=== PATIENT | male | born 1985 | race Caucasian/White ===

== ENCOUNTER 2017-08-25 10:40 | Emergency (ER) | payer OTHER ==
[~2017-08-25] VITALS: Ht 175.3 cm; Wt 113.4 kg
[2017-08-25] MEDS ORDERED: KETOROLAC TROMETHAMINE 60 MG INJ IM ONE ×2 (11:30→11:32)
--- NOTE | 2017-08-25 11:40 | NUR ---
Patient discharged to home in stable conditon. Written and verbal after care instructions given. Patient verbalizes understanding of instructions. ambulatory with a steady gait
[2017-08-25 11:41] VITALS: BP 147/84
== END 2017-08-25 11:42 | disposition home or self-care (01) ==
LOC: ER 10:40
DX: S39.011A Strain of muscle, fascia and tendon of abdomen, initial encounter (principal); X58.XXXA Exposure to other specified factors, initial encounter; Y93.89 Activity, other specified; Y92.89 Other specified places as the place of occurrence of the external cause; Y99.8 Other external cause status
CPT/HCPCS: A4663; J1885

== ENCOUNTER 2017-09-30 15:40 | Emergency (ER) | payer MEDICAID, OTHER ==
[~2017-09-30] VITALS: Ht 175.3 cm; Wt 113.4 kg
--- NOTE | 2017-09-30 16:03 | NUR ---
MSE COMPLETED, PT D/C'D HOME, ACI/RX X1/WORK RELEASE GIVEN. PT AMBULATED W/O DIFF/TOOK ALL BLONGINGS.
[2017-09-30 16:04] VITALS: BP 138/74
== END 2017-09-30 16:05 | disposition home or self-care (01) ==
LOC: ER 15:43
DX: J20.9 Acute bronchitis, unspecified (principal)
CPT/HCPCS: A4663

== ENCOUNTER 2017-12-15 16:28 | Emergency (ER) | payer OTHER ==
[~2017-12-15] VITALS: Ht 175.3 cm; Wt 113.4 kg
--- NOTE | 2017-12-15 17:18 | NUR ---
ANGEL SENA AT THE BEDSIDE FOR MSE.
--- NOTE | 2017-12-15 17:18 | NUR ---
DR. SHELTON AT BEDSIDE FOR EVAL.
--- NOTE | 2017-12-15 19:02 | NUR ---
Patient discharged to home in stable conditon. Written and verbal after care instructions given. Patient verbalizes understanding of instructions.
[2017-12-15 19:03] VITALS: BP 142/74
== END 2017-12-15 19:04 | disposition home or self-care (01) ==
LOC: ER 16:31
DX: S63.501A Unspecified sprain of right wrist, initial encounter (principal); S60.221A Contusion of right hand, initial encounter; W51.XXXA Accidental striking against or bumped into by another person, initial encounter; Y93.89 Activity, other specified; Y92.89 Other specified places as the place of occurrence of the external cause; Y99.8 Other external cause status
CPT/HCPCS: 29125; 73110; 73130; 99284; A4663

== ENCOUNTER 2018-01-28 17:19 | Emergency (ER) | payer OTHER ==
[~2018-01-28] VITALS: Ht 177.8 cm; Wt 111.1 kg
--- NOTE | 2018-01-28 17:36 | NUR ---
Patient discharged to home in stable conditon. Written and verbal after care instructions given. Patient verbalizes understanding of instructions.
== END 2018-01-28 17:37 | disposition home or self-care (01) ==
LOC: ER 17:20
DX: S83.92XA Sprain of unspecified site of left knee, initial encounter (principal); X50.1XXA Overexertion from prolonged static or awkward postures, initial encounter; Y93.89 Activity, other specified; Y92.89 Other specified places as the place of occurrence of the external cause; Y99.8 Other external cause status
CPT/HCPCS: 99282; A4663; J7030

== ENCOUNTER 2018-09-05 03:33 | Emergency (ER) | payer OTHER ==
[~2018-09-05] VITALS: Ht 177.8 cm; Wt 111.6 kg
[2018-09-05] MEDS ORDERED: ONDANSETRON ODT 4 MG TAB.RAPDIS ONE (03:54)
--- NOTE | 2018-09-05 03:57 | NUR ---
Patient discharged to home in stable conditon. Written and verbal after care instructions given. Patient verbalizes understanding of instructions.
[2018-09-05] MEDS ORDERED: ONDANSETRON ODT 4 MG TAB.RAPDIS SL ONE (04:00)
== END 2018-09-05 03:58 | disposition home or self-care (01) ==
LOC: ER 03:51
DX: A08.4 Viral intestinal infection, unspecified (principal)
CPT/HCPCS: A4663; Q0162

== ENCOUNTER 2019-01-06 16:50 | Emergency (ER) | payer OTHER ==
[~2019-01-06] VITALS: Ht 177.8 cm; Wt 113.4 kg
[2019-01-06] MEDS ORDERED: TDAP DIPH,PERTUSS,TET VAC/PF 0.5 ML DISP.SYRIN IM ONE ×2 (17:45→17:47)
--- NOTE | 2019-01-06 17:50 | NUR ---
PATIENT WAS SEEN BY MD. VACCINE GIVEN ORDERED. DC AND FOLLOW UP INSTRUCTIONS GIVEN AND EXPLAINED TO PATIENT WHO STATE HE UNDERSTANDS ALL INSTRUCTIONS.
== END 2019-01-06 17:52 | disposition home or self-care (01) ==
LOC: ER 16:51
DX: S51.052A Open bite, left elbow, initial encounter (principal); W50.3XXA Accidental bite by another person, initial encounter; Y93.89 Activity, other specified; Y92.89 Other specified places as the place of occurrence of the external cause; Y99.8 Other external cause status
CPT/HCPCS: 90715; A4663

== ENCOUNTER 2019-04-15 17:30 | Emergency (ER) | payer OTHER ==
[~2019-04-15] VITALS: Ht 177.8 cm; Wt 113.4 kg
--- NOTE | 2019-04-15 18:07 | NUR ---
Dr Quiñones at the bedside for MSE.
[2019-04-15] MEDS ORDERED: BENZONATATE 100 MG CAPSULE PO ONE (18:15)
[2019-04-15] MEDS ORDERED: BENZONATATE 100 MG CAPSULE ONE (18:17)
[2019-04-15 18:18] VITALS: BP 120/92
--- NOTE | 2019-04-15 18:19 | NUR ---
Patient discharged to home in stable conditon. Written and verbal after care instructions given. Patient verbalizes understanding of instructions.
== END 2019-04-15 18:19 | disposition home or self-care (01) ==
LOC: ER 17:31
DX: J20.9 Acute bronchitis, unspecified (principal); Z87.891 Personal history of nicotine dependence
CPT/HCPCS: A4663

== ENCOUNTER 2019-10-03 15:09 | Emergency (ER) | payer OTHER ==
[~2019-10-03] VITALS: Ht 177.8 cm; Wt 113.4 kg
--- NOTE | 2019-10-03 15:30 | NUR ---
Patient walked into ER c/o cough for 3 days. Patient c/o possible covid exposure.
--- NOTE | 2019-10-03 16:26 | NUR ---
Patient discharged to home in stable condition. Written and verbal after care instructions given. Patient verbalizes understanding of instructions. Stressed follow up or return to ER for worsening s/s.
[2019-10-03 16:28] VITALS: BP 138/88
== END 2019-10-03 16:30 | disposition home or self-care (01) ==
LOC: ER 15:10
DX: J06.9 Acute upper respiratory infection, unspecified (principal); Z20.828 Contact with and (suspected) exposure to other viral communicable diseases; F17.200 Nicotine dependence, unspecified, uncomplicated
CPT/HCPCS: 71045; 99284; U0003; A4663

== ENCOUNTER 2019-11-22 13:25 | Emergency (ER) | payer OTHER ==
[~2019-11-22] VITALS: Ht 177.8 cm; Wt 113.4 kg
[2019-11-22] MEDS ORDERED: TDAP DIPH,PERTUSS,TET VAC/PF 0.5 ML DISP.SYRIN IM ONE (14:02)
[2019-11-22] MEDS: TDAP DIPH,PERTUSS,TET VAC/PF 0.5 ML DISP.SYRIN IM ONE (14:03)
[2019-11-22] MEDS ORDERED: NEOMY/BACITRA/POLYMYXIN B OINT UD PACKET TP ONE (14:19)
== END 2019-11-22 14:23 | disposition home or self-care (01) ==
LOC: ER 13:25
DX: Z03.818 Encounter for observation for suspected exposure to other biological agents ruled out (principal); S50.311A Abrasion of right elbow, initial encounter; Y08.89XA Assault by other specified means, initial encounter; Y93.89 Activity, other specified; Y92.238 Other place in hospital as the place of occurrence of the external cause; Y99.0 Civilian activity done for income or pay
CPT/HCPCS: 90715; A4663